=== PATIENT | female | born 1995 ===

== ENCOUNTER 2020-01-17 09:12 | Inpatient (IN) | payer MEDICAID, OTHER ==
--- NOTE | 2020-01-09 11:47 | History and Physical Report ---
History of Present Illness Date of examination: 01/09/20 History of present illness: 24 yo will be at 39w 5d on 01/16 (EDC 01/18) when she presents for her scheduled RLTCS. H/o macrosomia last preg and EFW >90% this preg. 3 hr GTT WNL. No other issues during the . GBS neg Past History Past Medical History: no pertinent history Past Surgical History: section (x 2) Social history: no significant social history - Obstetrical History : 3 Hx # Term Pregnancies: 2 Number of Living Children: 2 Medications and Allergies Allergies Allergy/AdvReac Type Severity Reaction Status Date / Time No Known Allergies Allergy Verified 10/25/13 00:08 Home Medications Medication Instructions Recorded Confirmed Last Taken Type Ferrous Sulfate [Pedro-Iron] 15 mg PO DAILY 10/25/13 02/04/15 10/24/13 12:00 History Docusate Sodium [Colace] 100 mg PO BID PRN #60 capsule 10/28/13 02/04/15 Unknown Rx Ferrous Sulfate [Feosol 325 MG tab] 325 mg PO TID #90 tablet 10/28/13 02/04/15 Unknown Rx Ibuprofen [Motrin 600 MG tab] 600 mg PO Q6H PRN #30 tablet 10/28/13 02/04/15 Unknown Rx Vit-Fe Fumar-FA [ 1 tab PO DAILY #30 tablet 10/28/13 02/04/15 02/02/15 Rx Vitamin] oxyCODONE /ACETAMINOPHEN [Percocet 2 tab PO Q4H PRN #30 tablet 10/28/13 02/04/15 Unknown Rx 5/325 mg] Ferrous Sulfate [Feosol 325 MG tab] 325 mg PO BID #60 tablet 02/06/15 Unknown Rx Ibuprofen [Motrin 800 MG tab] 800 mg PO Q6H PRN #30 tablet 02/06/15 Unknown Rx oxyCODONE /ACETAMINOPHEN [Percocet 2 tab PO Q6H PRN #30 tablet 02/06/15 Unknown Rx 5/325 mg] Review of Systems All systems: negative (except HPI) - Physical Exam Cardiovascular: Regular rate Lungs: Positive: Clear to auscultation Abdomen: Positive: normal appearance (fundal height 43 cm), soft. Negative: tenderness Results Result Diagrams: 01/17/20 10:10 All other labs normal. Assessment and Plan - Patient Problems (1) Previous section Current Visit: No Status: Acute Plan to address problem: PT for RLTCS on 01/16. 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 Patient fully consented for the surgery. Risks, benefits, and alternatives were all discussed with the patient including risk of bleeding, infection, and potential for injury. Patient understands and accepts these risks. Patient agrees to proceed with surgery. All questions were answered.
[2020-01-17] MEDS: LACTATED RINGERS 1,000 ML IV SCH ×3 (09:45→21:06)
[2020-01-17] MEDS ORDERED: FAMOTIDINE 20 MG/2 ML INJ IV NR (10:13)
[2020-01-17] MEDS ORDERED: METOCLOPRAMIDE 10 MG/2 ML INJ IV NR (10:13)
[2020-01-17] MEDS ORDERED: BICITRA ORAL LIQD 30ML PO NR (10:13)
[2020-01-17 10:27] LABS: Basophils % (Auto) 0.5 % (0.0-1.8); Eosinophils # (Auto) 0.1 K/mm3 (0.0-0.4); Eosinophils % (Auto) 0.8 % (0.0-4.3); Hematocrit 38.5 % (30.3-42.9); Hemoglobin 12.9 gm/dl (10.1-14.3); Lymphocytes # (Auto) 2.3 K/mm3 (1.2-5.4); Lymphocytes % (Auto) 24.1 % (13.4-35.0); Mean Corpuscular HGB Conc 34 % (30-34); Mean Corpuscular Volume 82 fl (79-97); Monocytes # (Auto) 0.6 K/mm3 (0.0-0.8); Monocytes % (Auto) 6.2 % (0.0-7.3); Platelet Count 212 K/mm3 (140-440); Red Cell Distribution Width 19.6 % (13.2-15.2)
[2020-01-17] MEDS ORDERED: OXYTOCIN 20 UNIT/1000ML DRIP 20 UNITS/1,000 ML BAG IV SCH ×2 (11:00→14:00)
[2020-01-17] MEDS ORDERED: ceFAZolin/Water 2 GM/20 ML 2 GM/20 ML SYRINGE IV NR (11:00)
[2020-01-17] MEDS ORDERED: DEXMEDETOMIDINE 200 MCG/2 ML VIAL IV ONE (11:06)
[2020-01-17] MEDS ORDERED: OXYTOCIN 10 UNIT/1 ML INJ ONE (11:06)
[2020-01-17] MEDS ORDERED: ONDANSETRON 4 MG/2 ML INJ ONE (11:06)
[2020-01-17] MEDS ORDERED: KETOROLAC 30 MG/1 ML INJ ONE (11:06)
[2020-01-17] MEDS ORDERED: WATER FOR IRRIG STERILE 1,500 ML BOTTLE IR ONE (12:10)
[2020-01-17] MEDS ORDERED: SODIUM CHLORIDE 0.9% IRR 1,500 ML BOTTLE IR ONE (12:10)
[2020-01-17] MEDS ORDERED: diphenhydrAMINE 50 MG/ML VIAL IV PRN (12:17)
[2020-01-17] MEDS ORDERED: HYDROmorphone 1 MG/1 ML INJ IV PRN (12:17)
[2020-01-17] MEDS ORDERED: PROMETHAZINE 25 MG RECT SUPP PR PRN (12:17)
[2020-01-17] MEDS ORDERED: NalbUPHINE 10 MG/1 ML INJ IV PRN (12:17)
[2020-01-17] MEDS ORDERED: PROMETHAZINE 25 MG TAB PO PRN (12:17)
[2020-01-17] MEDS ORDERED: ONDANSETRON 4 MG/2 ML INJ IV PRN ×2 (12:17→13:45)
[2020-01-17] MEDS ORDERED: NALOXONE 0.4 MG/1 ML INJ IV PRN ×2 (12:17→13:43)
--- NOTE | 2020-01-17 12:19 | Anesthesia Day of Surgery ---
Anesthesia Day of Surgery - Day of Surgery Patient Examined: Yes Patient H&P Reviewed: Yes Patient is NPO: Yes Beta Blockers: No Cardiac Clearance: No Pulmonary Clearance: No Santo's Test: N/A
--- NOTE | 2020-01-17 12:19 | Anesthesia Consultation ---
Anesthesia Consult and Med Hx Date of service: 01/17/20 - Airway Anesthetic Teeth Evaluation: Good ROM Head & Neck: Adequate Mental/Hyoid Distance: Adequate Mallampati Class: Class III Intubation Access Assessment: Probably Good - Pulmonary Exam CTA: Yes - Cardiac Exam Cardiac Exam: RRR - Pre-Operative Health Status ASA Pre-Surgery Classification: ASA2 Proposed Anesthetic Plan: Spinal - Pulmonary Hx Smoking: No Hx Asthma: No COPD: No Hx Pneumonia: No Hx Sleep Apnea: No - Cardiovascular System Hx Hypertension: No - Central Nervous System Hx Seizures: No Hx Psychiatric Problems: No - Gastrointestinal Hx Gastroesophageal Reflux Disease: No - Endocrine Hx Renal Disease: No Hx End Stage Renal Disease: No Hx Hypothyroidism: No Hx Hyperthyroidism: No - Hematic Hx Anemia: No Hx Sickle Cell Disease: No - Other Systems Hx Alcohol Use: No
--- NOTE | 2020-01-17 12:22 | Progress Note ---
Spinal Anesthesia Block - Spinal Anesthesia Block Start Time: 11:40 Stop Time: 12:00 Performed by:: RADHA LAWTON Procedure: Spinal anesthesia block is being performed for [C/S]. H&P, labs have been reviewed. Patient's questions and concerns have been answered. Informed consent has been performed. Timeout has was performed. Patient in sitting position on side of bed. Sterile prep and drape was performed. 3 mL 1% lidocaine skin wheal at L [3]-L [4]. Needle introducer advanced. 25-gauge spinal needle advanced, 1st attempt unsuccessful. 3 mL 1% lidocaine skin wheal at L [2]-L [3]. Needle introducer advanced. 25-gauge spinal needle advanced, 2nd attempt [+] CSF [-] blood. [Precedex 10mcg and Marcaine 11.25mg] Spinal dose was given. All needles removed. Patient tolerated procedure well.
[2020-01-17] MEDS ORDERED: BUPIVACAINE/PF (0.5%) 5 MG/1 ML 30 ML VIAL INFILTRATI ONE (12:42)
[2020-01-17] MEDS ORDERED: PHENYLEPHRINE/NS 1,000 MCG/10 ML SYRINGE (OR USE) IV ONE (12:42)
--- NOTE | 2020-01-17 13:34 | Procedure Note ---
OB Delivery Note - Delivery Date of Delivery: 01/17/20 Surgeon: CULLEN AMEZQUITA Estimated blood loss: other (900 cc) - Section Preop diagnosis: repeat Postop diagnosis: same section procedure: section, repeat low transverse Disposition: PACU Complications: none Narrative: Indication: 24-year-old G3, P2 at 39 weeks and 5 days is here for her scheduled repeat low-transverse . Findings: Normal uterus, tubes and ovaries. Clear fluid. No nuchal cord. Moderate subcutaneous tissue scarring. No significant intra-abdominal scarring Procedure: Patient taken to the operating room and prepped and draped in the usual fashion. Pfannenstiel skin incision was made and carried down to the underlying fascia. Fascia was incised and the incision was extended bilaterally. Rectus fascia dissected off the rectus muscle both superiorly and inferiorly. Peritoneum identified tented up and entered. Peritoneal incision extended superiorly and inferiorly with good visualization of the bladder. Bladder blade was placed. Uterine incision was made and the incision was extended bilaterally. The baby was delivered from in the typical vertex fashion. Baby bulb suctioned at the incision site and again after delivery. Cord was delayed clamped and cut and handed off to waiting team. The placenta was delivered spontaneously. The uterus was exteriorized and cleared of all clots and debris. Uterine incision closed with 0 Vicryl in a running locked fashion followed by a second imbricating layer of 0 Vicryl. Good hemostasis was noted after a few additional [id number] 2-0 Vicryl stitches. Her urine was clear. Uterus tubes and ovaries were returned to the abdominal cavity. Gutters were cleared of all clots and debris and the pelvis was well irrigated. Good hemostasis noted. Interceed placed over the uterine incision and over the lower uterine segment in the midline. Attention was turned to the rectus fascia which was reapproximated with 0 Vicryl in a running fashion. Subcutaneous tissue was irrigated and reapproximated with 2-0 Vicryl in a running fashion. Skin was closed with 4-0 Vicryl in a subcuticular fashion followed by Dermabond. The procedure was concluded at this point and the patient tolerated the procedure well. All instrument and lap counts were correct. - A at 1 minute: 8 at 5 minutes: 9 Gender: Male
[2020-01-17] MEDS ORDERED: WITCH HAZEL/ GLYCERIN PAD TP PRN (13:43)
[2020-01-17] MEDS ORDERED: LANOLIN/ZINC/DIMETHICONE (LANSINOH) 7 GM TP PRN (13:43)
[2020-01-17] MEDS ORDERED: SIMETHICONE 80 MG CHEW TAB PO PRN (13:45)
[2020-01-17] MEDS ORDERED: SENNOSIDES 8.6 MG TAB PO PRN (13:45)
[2020-01-17] MEDS ORDERED: MAGNESIUM HYDROXIDE (MOM) ORAL LIQD UDC PO PRN (13:45)
--- NOTE | 2020-01-17 13:46 | Progress Note ---
Regional Anesthesia Block - Regional Anesthesia Block Start Time: 13:31 Stop Time: 13:44 Performed By:: RADHA LAWTON (Clay HERMAN) Procedure: Patient consented for TAP block for post surgical pain management. Patient identified, monitors placed, and time out performed. TAP identified bilaterally via ultrasound. Skin prepped bilaterally with [chlorhexidine] and [20g stimuplex] needle advanced to the TAP. 30ml [Marcaine 0.25% with 25mcg Precedex] injected under ultrasound guidance on the [left] side. 30ml [Marcaine 0.25% with 25mcg Precedex] injected under ultrasound guidance on the [right] side.
[2020-01-17] MEDS: KETOROLAC 30 MG/1 ML INJ IV PRN (21:00)
[2020-01-18] MEDS: oxyCODONE /ACETAMINOPHEN 5-325MG TAB PO PRN ×3 (02:04→19:37)
[2020-01-18] MEDS ORDERED: DIPHtheria,PERTUSSIS(ACELL),TETANUS VACCINE/PF 0.5 ML VIAL IM ONE (05:34)
[2020-01-18] MEDS: KETOROLAC 30 MG/1 ML INJ IV PRN (05:41)
--- NOTE | 2020-01-18 08:47 | Progress Note ---
Assessment and Plan A: POD # 1 -stable P: Continue post-op care Consider discharge in am. Subjective - Subjective Date of service: 01/18/20 Principal diagnosis: Csection POD # 1 Patient reports: appetite normal [place]: doing well Objective - Vital Signs Latest vital signs: Vital Signs Temp Pulse Resp BP BP Pulse Ox 01/18/20 05:04 98.0 F 74 18 114/61 94 01/18/20 00:50 98.2 F 73 18 107/60 93 01/17/20 20:48 98.0 F 75 18 109/54 96 01/17/20 16:15 97.5 F L 62 20 95/40 01/17/20 14:51 97.3 F L 63 14 104/49 94 01/17/20 14:20 98.3 F 60 14 108/57 01/17/20 14:10 60 12 105/52 01/17/20 14:00 61 13 102/51 01/17/20 13:50 63 15 102/52 01/17/20 13:40 69 14 108/50 01/17/20 13:30 73 14 100/46 01/17/20 13:25 98.4 F 72 12 96/53 01/17/20 11:33 79 95 01/17/20 11:28 85 94 01/17/20 11:23 85 95 01/17/20 11:22 92 H 94 01/17/20 11:18 71 96 01/17/20 11:13 85 95 01/17/20 11:12 87 94 01/17/20 11:08 88 95 01/17/20 11:06 83 94 01/17/20 11:03 86 95 01/17/20 10:58 91 H 95 01/17/20 10:53 97 H 97 01/17/20 10:48 95 H 96 01/17/20 10:43 93 H 95 01/17/20 10:42 86 94 01/17/20 10:38 79 95 01/17/20 10:34 85 117/65 92 01/17/20 10:33 87 95 01/17/20 10:28 85 96 01/17/20 10:23 92 H 97 01/17/20 10:18 82 94 01/17/20 10:15 98.1 F 18 Intake and Output 01/17/20 01/18/20 01/18/20 22:59 06:59 14:59 Intake Total 900 360 Output Total 400 1900 Balance 500 -1540 Intake: Oral 900 360 Output: Urine 400 1900 Indwelling Catheter 400 600 Void 1300 Other: Total, Intake Amount 120 240 Total, Output Amount 400 400 # Voids Indwelling Catheter 0 Void 1 Estimated Blood Loss 900 - Exam Breasts: Present: deferred Cardiovascular: Present: Regular rate Lungs: Present: Clear to auscultation Abdomen: Present: soft Vulva: both: normal Uterus: Present: fundal height below umbilicus Extremities: Present: normal Deep Tendon Reflex Grade: Dull/Diminished +1 Incision: Present: dressed - Labs Labs: Abnormal lab results 01/17/20 Range/Units 10:10 MCH 27 L (28-32) pg RDW 19.6 H (13.2-15.2) %
[2020-01-18 09:48] LABS: Hematocrit 38.4 % (30.3-42.9); Hemoglobin 12.7 gm/dl (10.1-14.3)
[2020-01-19] MEDS: IBUPROFEN 800 MG TAB PO PRN (06:30)
--- NOTE | 2020-01-19 08:08 | Post Anesthesia Evaluation ---
- Post Anesthesia Evaluation Patient Participated: Yes Airway Patent: Yes Stable Respiratory Function: Yes Nausea/Vomiting: No Temp > 96.8F: Yes Pain Manageable: Yes Adequeate Hydration: Yes Anesthesia Complications: No Block Receding Appropriately: Yes Patient on Ventilator: No
--- NOTE | 2020-01-19 10:55 | Progress Note ---
Assessment and Plan A: /postop day 2 S/P repeat LTCS. P: Encouraged patient to ambulate. Anticipate discharge home tomorrow if patient continues to do well. Subjective - Subjective Date of service: 01/19/20 Principal diagnosis: Csection POD # 2 Interval history: /postop day 2 S/P repeat low transverse section. Doing well. No complaints. Patient reports: appetite normal, voiding normally, pain well controlled, flatus, ambulating normally, no dizzy ambulation, no nauseated [place]: doing well Objective - Vital Signs Latest vital signs: Vital Signs Temp Pulse Resp BP Pulse Ox 01/19/20 07:41 98.2 F 83 18 115/60 93 01/19/20 06:30 16 01/18/20 23:49 98.4 F 80 18 120/63 94 01/18/20 17:45 98.2 F 75 18 117/62 96 01/18/20 13:19 97.6 F 83 18 112/65 95 Intake and Output 01/18/20 01/19/20 01/19/20 23:59 07:59 15:59 Other: # Voids Void 1 - Exam Cardiovascular: Present: Regular rate, Normal S1, Normal S2 Lungs: Present: Clear to auscultation Abdomen: Present: normal appearance, soft, normal bowel sounds. Absent: distention, tenderness, guarding, rigidity Uterus: Present: normal, firm, fundal height below umbilicus. Absent: bogginess, tenderness Extremities: Present: normal, edema (mild pedal edema bilaterally). Absent: tenderness Incision: Present: normal, dry, intact
[2020-01-20] MEDS: IBUPROFEN 800 MG TAB PO PRN ×2 (00:30→12:14)
[2020-01-20] MEDS: oxyCODONE /ACETAMINOPHEN 5-325MG TAB PO PRN (05:42)
--- NOTE | 2020-01-20 11:14 | Progress Note ---
Assessment and Plan A: /postop day 3 S/P repeat LTCS. P: Discharge patient home today. Discussed with patient /postop discharge instructions and warning signs. Care of incision and activity restrictions discussed with patient. Advised patient to continue to take her vitamins at home. Advised patient to avoid lifting, housework, i ntercourse, stair climbing, driving, tub baths (patient may take showers). Advised patient to follow up at [facility] in 1 week for postop/ exam; advised patient she will need to call the clinic to obtain an appointment. Patient voiced understanding of all instructions. Subjective - Subjective Date of service: 01/20/20 Principal diagnosis: Csection POD # 3 Interval history: /postop day 3 S/P repeat low transverse section. Doing well. No complaints. Patient desires discharge home today. Patient reports: appetite normal, voiding normally, pain well controlled, flatus, ambulating normally, no dizzy ambulation, no nauseated : doing well Objective - Vital Signs Latest vital signs: Vital Signs Temp Pulse Resp BP BP Pulse Ox 01/20/20 08:40 97.6 F 67 20 112/67 01/20/20 00:57 98.3 F 76 18 112/63 98 01/19/20 16:08 98.3 F 77 18 124/75 94 Intake and Output 01/19/20 01/20/20 01/20/20 23:59 07:59 15:59 Intake Total 360 360 240 Balance 360 360 240 Intake: Oral 360 240 Intake, Free Water 360 Other: Total, Intake Amount 120 240 # Voids Void 2 1 - Exam Cardiovascular: Present: Regular rate, Normal S1, Normal S2 Lungs: Present: Clear to auscultation Abdomen: Present: normal appearance, soft, normal bowel sounds. Absent: distention, tenderness, guarding, rigidity Uterus: Present: normal, firm, fundal height below umbilicus. Absent: bogginess, tenderness Extremities: Present: normal. Absent: tenderness, edema Incision: Present: normal, dry, intact
--- NOTE | 2020-01-20 11:18 | Discharge Summary ---
Providers - Providers Date of Admission: 01/17/20 09:12 Date of discharge: 01/20/20 Attending physician: CULLEN AMEZQUITA Primary care physician: CULLEN AMEZQUITA Hospitalization Reason for admission: section Delivery: Procedure: repeat low transverse Incision: normal, dry, intact Other procedures: none complications: none Discharge diagnosis: IUP at term delivered baby: male Pertinent studies: Labs Hospital course: Normal hospital course Condition at discharge: Good Disposition: DC-01 TO HOME OR SELFCARE - Discharge Diagnoses (1) Term delivered Status: Acute Plan - Discharge Medications Prescriptions: Ibuprofen [Motrin 800 MG tab] 800 mg PO Q6H PRN #30 tablet PRN Reason: Pain, Mild (1-3) oxyCODONE /ACETAMINOPHEN [Percocet 5/325 mg] 1 tab PO Q6H PRN #30 tablet PRN Reason: Pain, Moderate (4-6) - Provider Discharge Summary Activity: routine, no sex for 6 weeks, no heavy lifting 4 weeks, no strenuous exercise Diet: routine Instructions: routine Additional instructions: Continue to take your vitamins at home. Call your doctor immediately for: * Fever > 100.5 * Heavy vaginal bleeding ( >1 pad per hour) * Severe persistent headache * Shortness of breath * Reddened, hot, painful area to leg or breast * Drainage or odor from incision. * Keep incision clean and dry at all times and follow doctor's instructions regarding bathing/showering - Follow up plan Follow up: CULLEN AMEZQUITA MD [Primary Care Provider] - 7 Days
[2020-01-20 12:59] VITALS: BP 121/73
== END 2020-01-20 14:10 | disposition home or self-care (01) | DRG 788 ==
LOC: APU 09:12 → LD 13:05 → OB 15:01
PROVIDERS: ADMIT Obstetrics & Gynecology; ATTEND Obstetrics & Gynecology
PROC: 10D00Z1 Extraction of Products of Conception, Low, Open Approach (ICD-10-PCS; principal; 2020-01-17)
PROC: 3E0234Z Introduction of Serum, Toxoid and Vaccine into Muscle, Percutaneous Approach (ICD-10-PCS; 2020-01-18)
DX: O34.211 Maternal care for low transverse scar from previous cesarean delivery (principal); Z37.0 Single live birth; Z3A.39 39 weeks gestation of pregnancy; Z79.899 Other long term (current) drug therapy
CPT/HCPCS: 36415; 59025; 85014; 85018; 85025; 86850; 86900; 86901; 90715; G0378; J0690; J1885; J2370; J2405; J2590; J2765; J3490; J7120